=== PATIENT | female | born 1960 | race Hispanic/Latino ===

== ENCOUNTER 2021-06-26 18:09 | Emergency (ER) | payer OTHER ==
[~2021-06-26 18:09] MED LIST: BENADRYL 50MG C50 MG OR; CIPROFLOXACN500 MG PO; MEDDOSEPAK OR; NAPROSYN500 MG OR; TAGAMET300 MG OR; ULTRAM50 M1 PO; ULTRAM50 MG OR; ZOFRAN ODT4 MG PO
[2021-06-26 19:42] VITALS: BP 142/92
== END 2021-06-26 19:49 | disposition home or self-care (01) | DRG 552 ==
LOC: ED 18:09
DX: M54.2 Cervicalgia (principal); M54.9 Dorsalgia, unspecified; V43.52XA Car driver injured in collision with other type car in traffic accident, initial encounter

== ENCOUNTER 2024-07-24 07:37 | Day surgery (SDC) | payer OTHER ==
[~2024-07-24] VITALS: Ht 149.9 cm; Wt 72.6 kg
[~2024-07-24 07:37] MED LIST changes: +CYMBALTA30 MG PO; +GABAPENTIN400 M2 PO; +METFORMIN500 M2 PO; +OMEPRAZOLE DR40 MG PO
[2024-07-24] MEDS ORDERED: FAMOTIDINE 10MG/ML 2ML SDV IV ONE (08:06)
[2024-07-24] MEDS ORDERED: SODIUM CHLORIDE 0.9% 1,000 ML IV ONE (08:06)
[2024-07-24 09:31] VITALS: BP 154/88
[2024-07-24] MEDS ORDERED: PROPOFOL 200 MG/20 ML VIAL IV ONE (14:14)
[2024-07-24] MEDS ORDERED: GLYCOPYRROLATE 0.2 MG/ML IV ONE (14:14)
[2024-07-24] MEDS ORDERED: LIDOCAINE HCL 2% 2ML SDV IV ONE (14:14)
== END 2024-07-24 09:58 | disposition home or self-care (01) | DRG 951 ==
LOC: ORM 07:37
PROVIDERS: ATTEND Internal Medicine Gastroenterology
PROC: 0DJD8ZZ Inspection of Lower Intestinal Tract, Via Natural or Artificial Opening Endoscopic (ICD-10-PCS; principal; 2024-07-24)
PROC: 0DB48ZX Excision of Esophagogastric Junction, Via Natural or Artificial Opening Endoscopic, Diagnostic (ICD-10-PCS; 2024-07-24)
PROC: 0DB78ZX Excision of Stomach, Pylorus, Via Natural or Artificial Opening Endoscopic, Diagnostic (ICD-10-PCS; 2024-07-24)
DX: Z12.11 Encounter for screening for malignant neoplasm of colon (principal); K64.8 Other hemorrhoids; K29.70 Gastritis, unspecified, without bleeding; K31.89 Other diseases of stomach and duodenum; K21.9 Gastro-esophageal reflux disease without esophagitis; E11.40 Type 2 diabetes mellitus with diabetic neuropathy, unspecified; E21.3 Hyperparathyroidism, unspecified; Z79.899 Other long term (current) drug therapy